=== PATIENT | female | born 1970 | race Caucasian/White ===

== ENCOUNTER 2018-10-23 14:49 | Inpatient (IN) | payer BC ==
[2018-10-23] MEDS ORDERED: SODIUM CHLORIDE 0.9% 1,000 ML IV ONE (15:06)
--- NOTE | 2018-10-23 15:14 | ED ---
Skin/Abscess/FB HPI - General Chief complaint: Skin/Abscess/Foreign Body Stated complaint: Facial swelling, tooth pulled Time Seen by Provider: 10/23/18 15:01 Source: patient, RN notes reviewed Mode of arrival: ambulatory Limitations: no limitations - History of Present Illness Initial comments: 48-year-old female presented emergency Department with chief complaint right- sided facial pain and swelling. Patient states she had a tooth extraction on Friday by [facility]. Patient states the pain is swelling has worsened last 24 hours. Patient states she is currently taking clindamycin. Patient states that she went to call her dentist but they are closed today. Patient states that she spiked a fever yesterday. Patient states is a Difficult to open close her mouth. - Related Data Allergies Allergy/AdvReac Type Severity Reaction Status Date / Time Penicillins Allergy Rash/Hives Verified 10/23/18 14:55 Review of Systems ROS Statement: Those systems with pertinent positive or pertinent negative responses have been documented in the HPI. ROS Other: All systems not noted in ROS Statement are negative. Past Medical History Past Medical History: No Reported History History of Any Multi-Drug Resistant Organisms: None Reported Past Surgical History: No Surgical Hx Reported Past Psychological History: No Psychological Hx Reported Smoking Status: Never smoker Past Alcohol Use History: Occasional Past Drug Use History: None Reported General Exam Limitations: no limitations General appearance: alert, in no apparent distress Head exam: Present: atraumatic, normocephalic, normal inspection Eye exam: Present: normal appearance, PERRL, EOMI. Absent: scleral icterus, conjunctival injection, periorbital swelling ENT exam: Present: mucous membranes moist, TM's normal bilaterally. Absent: nor mal exam, normal oropharynx (Moderate right-sided facial swelling, tenderness with palpation, mild erythema) Neck exam: Present: normal inspection, full ROM, lymphadenopathy. Absent: tenderness, meningismus Respiratory exam: Present: normal lung sounds bilaterally. Absent: respiratory distress, wheezes, rales, rhonchi, stridor Cardiovascular Exam: Present: normal rhythm, tachycardia, normal heart sounds. Absent: systolic murmur, diastolic murmur, rubs, gallop, clicks Course Vital Signs 10/23/18 14:53 Temperature 99.7 F H Pulse Rate 114 H Respiratory 20 Rate Blood Pressure 139/93 O2 Sat by Pulse 99 Oximetry Medical Decision Making - Medical Decision Making 48-year-old female presented for facial swelling. Patient's fell outpatient treatment of dental infection. No drainable abscess. Patient will be admitted for IV antibiotics, oral surgery consult. - Lab Data Result diagrams: 10/23/18 15:00 10/23/18 15:00 Lab Results 10/23/18 10/23/18 10/23/18 Range/Units 15:00 15:00 15:00 WBC 12.6 H (3.8-10.6) k/uL RBC 4.46 (3.80-5.40) m/uL Hgb 13.5 (11.4-16.0) gm/dL Hct 39.6 (34.0-46.0) % MCV 88.9 (80.0-100.0) fL MCH 30.3 (25.0-35.0) pg MCHC 34.1 (31.0-37.0) g/dL RDW 13.9 (11.5-15.5) % Plt Count 133 L (150-450) k/uL Sodium 140 (137-145) mmol/L Potassium 3.6 (3.5-5.1) mmol/L Chloride 103 (98-107) mmol/L Carbon Dioxide 24 (22-30) mmol/L Anion Gap 13 mmol/L BUN 9 (7-17) mg/dL Creatinine 0.59 (0.52-1.04) mg/dL Est GFR (CKD-EPI)AfAm >90 (>60 ml/min/1.73 sqM) Est GFR (CKD-EPI)NonAf >90 (>60 ml/min/1.73 sqM) Glucose 110 H (74-99) mg/dL Plasma Lactic Acid Deejay 1.3 (0.7-2.0) mmol/L Calcium 9.6 (8.4-10.2) mg/dL Disposition Clinical Impression: Dental infection, Failure of outpatient treatment Disposition: ADMITTED IP TO THIS HOSP Condition: Fair Referrals: Saeed Montesinos MD [Primary Care Provider] - 1-2 days
[2018-10-23 15:40] LABS: Basophils % (A) 0 %; Eosinophils # (A) 0.2 k/uL (0-0.7); Eosinophils % (A) 1 %; HCT 39.6 % (34.0-46.0); HGB 13.5 gm/dL (11.4-16.0); Lymphocytes # (A) 1.2 k/uL (1.0-4.8); Lymphocytes % (A) 10 %; MCH 30.3 pg (25.0-35.0); MCHC 34.1 g/dL (31.0-37.0); MCV 88.9 fL (80.0-100.0); Mean Platelet Volume 11.2; Monocytes # (A) 0.8 k/uL (0-1.0); Monocytes % (A) 6 %; Neutrophils # (A) 10.4 k/uL (1.3-7.7); Neutrophils % (A) 82 %; Platelet Count 133 k/uL (150-450); RBC 4.46 m/uL (3.80-5.40); RDW 13.9 % (11.5-15.5); WBC 12.6 k/uL (3.8-10.6)
[2018-10-23 15:41] LABS: Anion Gap 13 mmol/L; Blood Urea Nitrogen 9 mg/dL (7-17); Calcium 9.6 mg/dL (8.4-10.2); Carbon Dioxide 24 mmol/L (22-30); Chloride 103 mmol/L (98-107); Glucose 110 mg/dL (74-99); Potassium 3.6 mmol/L (3.5-5.1); Sodium 140 mmol/L (137-145)
--- NOTE | 2018-10-23 15:52 | CT ---
EXAMINATION TYPE: CT soft tissue neck w con DATE OF EXAM: 10/23/2018 COMPARISON: None HISTORY: [place] tooth removed 3 days ago. Right facial swelling and fever. CT DLP: 189.1 mGycm CONTRAST: Patient injected with 100 mL of Isovue 300. TECHNIQUE: Axial images at 3 mm thick sections. Reconstructed images in the coronal plane and sagitt al plane are reviewed. FINDINGS: Limited CT sections are obtained the lung apices. The lung apices appear clear. CT neck: The torus tubarius and fossa of Rosenmuller are normal. The lateral tailing hand muscle on the right appears swollen compared to the left. No underlying abscess is identified. There are inflammat ory changes in the subcutaneous and deeper tissues on the right. No focal circumscribed abscess is id entified. No hematoma is identified. Phlegmon should be considered. Follow-up is recommended. Paranas al sinuses and mastoid air cells are clear. Parotid glands appear normal and symmetrical. Submandibular glands, are normal. Multiple small lymph nodes are present adjacent to the submandibular gland on the right. Couple small lymph nodes are pre sent on the left. Parapharyngeal spaces are normal. No suspicious adenopathy is evident. The hypopharynx appears within normal limits. Vocal cord level appear symmetrical. Thyroid as visualized is normal. No tracking into the prevertebral space or superior mediastinum in the lower neck is evident. Osseous structures are normal. IMPRESSIONS: 1. Soft tissue swelling and muscular swelling on the right. No underlying abscess is identified. Ther e are multiple small lymph nodes present.
[2018-10-23] MEDS ORDERED: CLINDAMYCIN 600 MG in DEXTROSE 5% IN WATER 50 ML IVPB STA ×2 (16:39)
[2018-10-23] MEDS ORDERED: HYDROcodone/APAP 5-325MG 1 EACH TAB PO PRN (16:42)
[2018-10-23] MEDS ORDERED: NALOXONE 0.4 MG/ML 1 ML VIAL IV PRN (16:42)
[2018-10-23] MEDS ORDERED: IBUPROFEN 400 MG TAB PO PRN (16:42)
[2018-10-23] MEDS ORDERED: ONDANSETRON 4 MG/2 ML VIAL IVP PRN (16:42)
[2018-10-23] MEDS ORDERED: ACETAMINOPHEN TAB 325 MG TAB PO PRN (16:42)
[2018-10-23] MEDS ORDERED: MORPHINE SULFATE 4 MG/ML SYRINGE IV PRN (16:42)
[2018-10-23] MEDS ORDERED: DEXAMETHASONE SOD PHOSPHATE 10 MG/ML 1 ML VIAL IV STA (16:46)
[2018-10-23] MEDS: KETOROLAC 30 MG/ML 1 ML VIAL IVP PRN (17:12)
[2018-10-23 18:34] VITALS: BMI 22.5
--- NOTE | 2018-10-23 18:36 | P.GSCN ---
History of Present Illness Consult date: 10/23/18 Reason for Consult: Facial cellulitis right side Requesting physician: Burak Soto History of present illness: 48-year-old female sitting up in bed the at bedside. Patient's pleasant no apparent distress. Patient had a impacted third molar on the right side tooth #[address] [facility] on October 20. Patient woke up the next a significantly swollen with pain. Over the next few days swelling worse and fever and chills ensued. The patient had been placed on clindamycin postoperatively and continued to take it as directed. Review of Systems - Constitutional Reports as per HPI, Reports chills, Reports fever - EENT Ears, nose, mouth and throat: Reports dental pain, Reports mouth pain, Reports neck fullness/pressure, Reports neck lump, Reports odynophagia, Reports swelling in mouth - Psychiatric Reports as per HPI Past Medical History Past Medical History: No Reported History History of Any Multi-Drug Resistant Organisms: None Reported Past Surgical History: No Surgical Hx Reported Past Psychological History: No Psychological Hx Reported Smoking Status: Never smoker Past Alcohol Use History: Occasional Past Drug Use History: None Reported Medications and Allergies Home Medications Medication Instructions Recorded Confirmed Type Clindamycin HCl 300 mg PO Q8H 10/23/18 10/23/18 History HYDROcodone/APAP 5-325MG [[place] 1 tab PO Q6HR PRN 10/23/18 10/23/18 History 5-325] Multivitamins, Thera [Multivitamin 1 tab PO DAILY 10/23/18 10/23/18 History (formulary)] Allergies Allergy/AdvReac Type Severity Reaction Status Date / Time Penicillins Allergy Rash/Hives Verified 10/23/18 18:01 Surgical - Exam Vital Signs Temp Pulse Resp BP Pulse Ox 99.7 F H 114 H 20 139/93 99 10/23/18 14:53 10/23/18 14:53 10/23/18 14:53 10/23/18 14:53 10/23/18 14:53 - General well developed, well nourished, moderate distress - Eyes PERRL, normal ocular movement - ENT Patient has greater than 2 cm swelling associated with the lateral aspect of the right jaw appears to be originating over the extraction site of tooth #32. has limited mouth opening approximately 8-10 mm. A recent surgical incision is noted buccal to tooth #31 32. The angle of the mandible is palpable. Swelling appears to stop at the zygomatic arch. And forward to the commissure but not into the lips. Intraorally the tongue is not raised. There is no noted swelling of the soft palate. Unable to see the uvula DUE to limited opening. Swelling is firm and tender no fluctuance is noted. normal nares Results - Labs 10/23/18 15:00 10/23/18 15:00 Abnormal Lab Results - Last 24 Hours (Table) 10/23/18 10/23/18 Range/Units 15:00 15:00 WBC 12.6 H (3.8-10.6) k/uL Plt Count 133 L (150-450) k/uL Neutrophils # 10.4 H (1.3-7.7) k/uL Glucose 110 H (74-99) mg/dL Diabetes panel 10/23/18 Range/Units 15:00 Sodium 140 (137-145) mmol/L Potassium 3.6 (3.5-5.1) mmol/L Chloride 103 (98-107) mmol/L Carbon Dioxide 24 (22-30) mmol/L BUN 9 (7-17) mg/dL Creatinine 0.59 (0.52-1.04) mg/dL Glucose 110 H (74-99) mg/dL Calcium 9.6 (8.4-10.2) mg/dL Calcium panel 10/23/18 Range/Units 15:00 Calcium 9.6 (8.4-10.2) mg/dL Pituitary panel 10/23/18 Range/Units 15:00 Sodium 140 (137-145) mmol/L Potassium 3.6 (3.5-5.1) mmol/L Chloride 103 (98-107) mmol/L Carbon Dioxide 24 (22-30) mmol/L BUN 9 (7-17) mg/dL Creatinine 0.59 (0.52-1.04) mg/dL Glucose 110 H (74-99) mg/dL Calcium 9.6 (8.4-10.2) mg/dL Adrenal panel 10/23/18 Range/Units 15:00 Sodium 140 (137-145) mmol/L Potassium 3.6 (3.5-5.1) mmol/L Chloride 103 (98-107) mmol/L Carbon Dioxide 24 (22-30) mmol/L BUN 9 (7-17) mg/dL Creatinine 0.59 (0.52-1.04) mg/dL Glucose 110 H (74-99) mg/dL Calcium 9.6 (8.4-10.2) mg/dL - Imaging Additional studies: CT scan report reviewed no abscess or hematoma noted. Assessment and Plan Assessment: Postoperative surgical changes consistent with postoperative infection. No abscess or hematoma noted on the CAT scan. Plan: Due to the fact there is no abscess or hematoma to drain no surgical interve ntion at this time. Recommend IV antibiotic therapy. Clindamycin remains a good choice in the intravenous route provided clinical improvement is noted. Steroids were given in the emergency room and recommended tapering dose at this point. We'll continue to follow. Time with Patient: Less than 30
[2018-10-23] MEDS: CHLORHEXIDINE GLUCONATE 15 ML CUP MUCOUS MEM SCH (21:26)
[2018-10-24] MEDS ORDERED: DEXAMETHASONE SOD PHOSPHATE 10 MG/ML 1 ML VIAL IV ONE
[2018-10-24] MEDS: CLINDAMYCIN 600 MG in DEXTROSE 5% IN WATER 50 ML IVPB SCH ×8 (00:08→18:16)
[2018-10-24] MEDS: SODIUM CHLORIDE 0.9% 1,000 ML IV SCH ×2 (05:58→20:31)
[2018-10-24] MEDS: DEXAMETHASONE SOD PHOSPHATE 4 MG/ML 1 ML VIAL IV SCH ×3 (05:59→20:31)
[2018-10-24 08:56] VITALS: RESP 16
[2018-10-24] MEDS: CHLORHEXIDINE GLUCONATE 15 ML CUP MUCOUS MEM SCH ×2 (09:44→20:31)
[2018-10-24] MEDS: KETOROLAC 30 MG/ML 1 ML VIAL IVP PRN ×2 (09:47→20:40)
--- NOTE | 2018-10-24 15:36 | P.PN ---
Subjective Progress Note Date: 10/24/18 Principal diagnosis: Right sided facial cellulitis postop surgical extraction of impacted wisdom tooth day 4 Patient was admitted to the hospital yesterday after increased pain and swelling postop surgical extraction of impacted wisdom tooth. Patient was placed on clindamycin postoperatively and she reported compliance. She was having some difficulty eating due to her inability to open her mouth but she had no difficulty swallowing or airway compromise. She did report fever and chills at home and had a fever upon arrival to the floor but has had no fevers since her admission. Today she reports being able to eat full liquids able to get a spoon in her mouth. No difficulty swallowing and no difficulty drinking. Overall she feels much better today. Objective - Vital Signs Vital signs: Vital Signs Temp 97.6 F 10/24/18 11:42 Pulse 82 10/24/18 11:42 Resp 16 10/24/18 11:42 BP 109/70 10/24/18 11:42 Pulse Ox 95 10/24/18 11:42 Intake & Output 10/23/18 10/24/18 10/24/18 18:59 06:59 18:59 Intake Total 300 Balance 300 Weight 60.781 kg Intake: Oral 300 Other: Voiding Method Toilet # Voids 1 - EENT EENT Comment(s): Patient's able to open her mouth approximately 10-12 mm. She denies any numbness. She has no tongue elevation. Able to palpate the cheek bone angle of the mandible in the chin without difficulty. Over 2 cm of facial swelling still present in the lateral aspect of the mandible. Appears to be slightly improved since yesterday. Redness has changed to ecchymosis of yellow and green. Still quite tender to palpation no fluctuance noted - Labs CBC & Chem 7: 10/23/18 15:00 10/23/18 15:00 Labs: Abnormal Lab Results - Last 24 Hours (Table) 10/23/18 10/23/18 Range/Units 15:00 15:00 WBC 12.6 H (3.8-10.6) k/uL Plt Count 133 L (150-450) k/uL Neutrophils # 10.4 H (1.3-7.7) k/uL Glucose 110 H (74-99) mg/dL Assessment and Plan Assessment: Postoperative surgical changes consistent with postoperative infection. No abscess or hematoma noted on the CAT scan. Overall patient feels better today and swelling appears slightly improved. Plan: Due to the patient improving clinically recommend continue current antibiotic therapy and no surgical intervention at this time. The patient reporting no diarrhea but lactobacillus may be added to her diet and an effort to maintain gut integrity. Also recommend continuing tapered Decadron dosing changing to every 8 hours with the next dose to be and 8 PM. Continue to push orals and motivated patient to ambulate. Okay to shower. Time with Patient: Less than 30
[2018-10-24] MEDS: LACTOBACILLUS ACIDOPH & BULGAR 1 EACH PACKET PO SCH (20:31)
--- NOTE | 2018-10-25 00:03 | P.HPIM ---
History of Present Illness H&P Date: 10/24/18 Chief Complaint: Right-sided facial swelling Patient is a 48-year-old female without significant past medical history came to ER with complaints of right-sided facial swelling and increased tooth pain and fever worsening for the past 24 hours prior to admission. Patient did have tooth extraction due to impacted lower wisdom tooth about 5 days ago. Patient has been having swelling of the face and pain since then without improvement with Motrin at home. Patient became febrile and came to ER for evaluation. Patient unable to open her mouth and difficulty in speech as well. No complaints of chest pain or shortness of breath. Patient does have fever and chills on admission.\ No nausea vomiting or diarrhea. No dysuria or hematuria. CT soft tissue neck showed soft tissue swelling and muscular swelling on the right. No underlying abscess is identified. There are multiple small lymph nodes present. Review of Systems Constitutional: Patient does have fever and chills. . No generalized weakness or weight loss. Abdomen: Patient denied nausea vomiting and diarrhea and abdominal pain. Cardiovascular: Patient denies any chest pain or short of breath no palpitations. Respiratory: patient denied any cough is from production. No shortness of breath Neurologic: Patient denied any numbness or tingling headache. Musculoskeletal: Patient denies any complaints of joint swelling or deformity. Right-sided facial swelling and pain Skin: Negative Psychiatric: Negative Endocrine: No heat or cold intolerance. No recent weight gain. Genitourinary: No dysuria or hematuria. All other 14 point ROS negative except the above Past Medical History Past Medical History: No Reported History History of Any Multi-Drug Resistant Organisms: None Reported Past Surgical History: No Surgical Hx Reported Past Psychological History: No Psychological Hx Reported Smoking Status: Never smoker Past Alcohol Use History: Occasional Past Drug Use History: None Reported - Past Family History Mother Family Medical History: No Reported History Father Family Medical History: No Reported History Medications and Allergies Home Medications Medication Instructions Recorded Confirmed Type Clindamycin HCl 300 mg PO Q8H 10/23/18 10/23/18 History HYDROcodone/APAP 5-325MG [[place] 1 tab PO Q6HR PRN 10/23/18 10/23/18 History 5-325] Multivitamins, Thera [Multivitamin 1 tab PO DAILY 10/23/18 10/23/18 History (formulary)] Allergies Allergy/AdvReac Type Severity Reaction Status Date / Time Penicillins Allergy Rash/Hives Verified 10/23/18 18:01 Physical Exam Vitals: Vital Signs Temp Pulse Pulse Resp BP BP Pulse Ox 10/24/18 11:42 97.6 F 82 16 109/70 95 10/24/18 08:33 98.1 F 73 16 105/67 98 10/24/18 00:07 97.6 F 69 14 100/71 97 10/24/18 00:00 69 14 10/23/18 20:08 85 16 10/23/18 19:58 98.6 F 85 16 100/70 97 10/23/18 18:40 100.6 F H 108 H 18 111/72 95 10/23/18 17:30 102.6 F H 110 H 16 110/74 99 Intake and Output 10/24/18 10/24/18 10/24/18 06:59 14:59 22:59 Intake Total 300 Balance 300 Intake: Oral 300 Other: Voiding Method Toilet # Voids 1 PHYSICAL EXAMINATION: Patient is lying in the bed comfortably, no acute distress, awake alert and oriented.. HEENT: Right facial swelling and redness and unable to open her mouth Normocephalic. Neck is supple. Pupils reactive. Nostrils clear. Oral cavity is moist. Ears reveal no drainage. Neck reveals no JVD, carotid bruits, or thyromegaly. CHEST EXAMINATION: Trachea is central. Symmetrical expansion. Lung lui clear to auscultation and percussion. CARDIAC: Normal S1, S2 with no gallops. No murmurs ABDOMEN: Soft. Bowel sounds normal. No organomegaly. No abdominal bruits. Extremities: reveal no edema. No clubbing or cyanosis Neurologically awake, alert, oriented x3 with well-coordinated movements. No focal deficits noted Skin: No rash or skin lesions. Psychiatric: Coperative. Nonsuicidal Musculoskeletal: No joint swelling or deformity. Normal range of motion. Results CBC & Chem 7: 10/23/18 15:00 10/23/18 15:00 Labs: Abnormal Lab Results - Last 24 Hours (Table) 10/23/18 Range/Units 15:00 WBC 12.6 H (3.8-10.6) k/uL Plt Count 133 L (150-450) k/uL Neutrophils # 10.4 H (1.3-7.7) k/uL Thrombosis Risk Factor Assmnt - DVT/VTE Prophylaxis DVT/VTE Prophylaxis: Pharmacologic Prophylaxis ordered - Choose All That Apply Any of the Below Risk Factors Present?: No Other Risk Factors: No Other congenital or acquired thrombophilia - If yes, enter type in comment: No Thrombosis Risk Factor Assessment Level: Very Low Risk Assessment and Plan Assessment: right facial swelling and pain with opening of mouth due to recent tooth extraction. No abscess noted in the CT Fever on admission. Currently resolved. Plan: Patient will be continued on antibiotics of clindamycin. Follow blood cultures. Patient was given Decadron which is being tapered down. Continue with Peridex oral. Gen. surgery is following. Follow-up closely. Further conditions based on the clinical course. Time with Patient: Greater than 30
[2018-10-25] MEDS: CLINDAMYCIN 600 MG in DEXTROSE 5% IN WATER 50 ML IVPB SCH ×6 (00:07→11:47)
[2018-10-25] MEDS: DEXAMETHASONE SOD PHOSPHATE 4 MG/ML 1 ML VIAL IV SCH ×2 (04:06→12:27)
[2018-10-25] MEDS: KETOROLAC 30 MG/ML 1 ML VIAL IVP PRN (07:23)
[2018-10-25] MEDS: CHLORHEXIDINE GLUCONATE 15 ML CUP MUCOUS MEM SCH (07:29)
[2018-10-25] MEDS: LACTOBACILLUS ACIDOPH & BULGAR 1 EACH PACKET PO SCH (10:09)
[2018-10-25] MEDS: SODIUM CHLORIDE 0.9% 1,000 ML IV SCH (10:12)
[2018-10-25 16:46] VITALS: BP 115/75; PULSE 68; TEMP 97.9
== END 2018-10-25 16:33 | disposition home or self-care (01) | DRG 863 ==
LOC: EC 14:49 → 6PED 16:36
PROVIDERS: ADMIT Internal Medicine; ATTEND Internal Medicine
DX: T81.40XA Infection following a procedure, unspecified, initial encounter (principal); L03.211 Cellulitis of face; K08.409 Partial loss of teeth, unspecified cause, unspecified class; Z88.0 Allergy status to penicillin
CPT/HCPCS: 36415; 70491; 80048; 83605; 85025; 87040; 96361; 96365; 96375; 99284

== ENCOUNTER → 2020-06-07 | Outpatient (CLI) | payer OTHER ==
--- NOTE | 2020-06-07 07:32 | US ---
EXAMINATION TYPE: US abdomen complete DATE OF EXAM: 06/07/2020 COMPARISON: NONE CLINICAL HISTORY: R16.1 Spleeomagly. Pt states low platelets EXAM MEASUREMENTS: Liver Length: 16.0 cm Gallbladder Wall: 0.1 cm CBD: 0.4 cm Spleen: 8.5 cm Right Kidney: 10.3 x 4.4 x 4.6 cm Left Kidney: 10.4 x 5.3 x 5.3 cm Pancreas: wnl Liver: wnl Gallbladder: wnl Evidence for sonographic Wilson's sign: No CBD: wnl Spleen: wnl, specular reflections scattered throughout Right Kidney: wnl Left Kidney: wnl, lower pole gassed out Upper IVC: wnl Abd Aorta: wnl The liver is homogenous. The intrahepatic portion of the IVC and proximal abdominal aorta are within normal limits. There is no evidence of cholelithiasis. Common bile duct is unremarkable. The visu alized portions of the pancreas are homogenous. The spleen is unremarkable. Kidneys are symmetric a nd free of hydronephrosis. No renal lesions are seen. IMPRESSION: No distinct abnormality appreciated.
== END | disposition home or self-care (01) ==
LOC: RADUSWWP 06:58
PROVIDERS: ATTEND Internal Medicine Hematology & Oncology
DX: R16.1 Splenomegaly, not elsewhere classified (principal); Z88.0 Allergy status to penicillin
CPT/HCPCS: 76700

== ENCOUNTER → 2021-04-11 | Outpatient (CLI) | payer OTHER ==
--- NOTE | 2021-04-12 13:41 | MM ---
Reason for exam: screening (asymptomatic). Last mammogram was performed 3 years and 2 months ago. History: Patient is postmenopausal. Retro-pectoral saline implants in both breasts, 2006. Physical Findings: A clinical breast exam by your physician is recommended on an annual basis and results should be correlated with mammographic findings. MG 3D Screen Mammo Imp/Cad Bilateral CC, MLO, and ID view(s) were taken. Prior study comparison: February 03, 2018, mammogram, performed at [facility]. August 25, 2015, mammogram, performed at [facility]. August 22, 2015, mammogram, performed at [facility]. The breast tissue is heterogeneously dense. This may lower the sensitivity of mammography. Bilateral implants are intact. ASSESSMENT: Benign, BI-RAD 2 RECOMMENDATION: Routine screening mammogram of both breasts in 1 year.
== END | disposition home or self-care (01) ==
LOC: RADMAMWWP 12-05 07:04
PROVIDERS: ATTEND Obstetrics & Gynecology Obstetrics
DX: Z12.31 Encounter for screening mammogram for malignant neoplasm of breast (principal); Z78.0 Asymptomatic menopausal state; Z98.82 Breast implant status
CPT/HCPCS: 77063; 77067

== ENCOUNTER → 2023-06-17 | Outpatient (CLI) | payer OTHER ==
--- NOTE | 2023-06-18 09:22 | MM ---
Reason for Exam: Hx of breast augmentation, asymptomatic. Last mammogram was performed 2 year(s) and 2 month(s) ago. Patient History: Menarche at age 14. First Full-Term at age 19. Postmenopausal. 2005, Bilateral Implants. Risk Values: Sridevi 5 year model risk: 0.8%. NCI Lifetime model risk: 6.3%. Prior Study Comparison: 08/25/2015 Screening Mammogram, [facility] [place] . 02/03/2018 Screening Mammogram, [facility] [place] . 04/11/2021 Bilateral Screening Mammogram, [facility]. Tissue Density: There are scattered fibroglandular densities. Findings: Analyzed By CAD. Bilateral breast implants appear intact. There is no suspicious group of microcalcifications or new suspicious mass. Overall Assessment: Negative, BI-RAD 1 Management: Screening Mammogram of both breasts in [address] [facility] will attempt to contact patient to return for supplemental views and ultrasound if indicated. Patient should continue monthly self-breast exams. A clinical breast exam by your physician is recommended on an annual basis. This exam should not preclude additional follow-up of suspicious palpable abnormalities. Note on Sridevi scores and lifetime risk: 1. A Sridevi score greater than 3% is considered moderate risk. If this is the case, consider specialist referral to assess eligibility for a risk reducing agent. 2. If overall lifetime risk for the development of breast cancer is 20% or higher, the patient may qualify for future screening with alternating mammogram and breast MRI. Electronically signed and approved by: Glen Robbins DO
== END | disposition home or self-care (01) ==
LOC: RADMAMWWP 10:34
PROVIDERS: ATTEND Obstetrics & Gynecology Obstetrics
DX: Z12.31 Encounter for screening mammogram for malignant neoplasm of breast (principal); Z78.0 Asymptomatic menopausal state; Z98.82 Breast implant status
CPT/HCPCS: 77063; 77067

== ENCOUNTER → 2024-11-02 | Outpatient (CLI) | payer OTHER ==
--- NOTE | 2024-11-02 14:44 | MM ---
Reason for Exam: Screening (asymptomatic). Last mammogram was performed 1 year(s) and 5 month(s) ago. Patient History: Menarche at age 14. First Full-Term at age 19. Postmenopausal. 2006, Bilateral Implants. Risk Values: Sridevi 5 year model risk: 0.8%. NCI Lifetime model risk: 6.2%. Prior Study Comparison: 02/03/2018 Screening Mammogram, [facility] [place] . 04/11/2021 Bilateral Screening Mammogram, [facility]. 06/17/2023 Bilateral MG 3D screen mammo imp/cad., [facility]. Tissue Density: The breasts are heterogeneously dense, which may obscure small masses. Findings: Analyzed By CAD. Bilateral breast implants are redemonstrated. There is no suspicious group of microcalcifications or new suspicious mass in either breast. Overall Assessment: Benign, BI-RAD 2 Management: Screening Mammogram of both breasts in 1 year. . Patient should continue monthly self-breast exams. A clinical breast exam by your physician is recommended on an annual basis. This exam should not preclude additional follow-up of suspicious palpable abnormalities. Note on Sridevi scores and lifetime risk: 1. A Sridevi score greater than 3% is considered moderate risk. If this is the case, consider specialist referral to assess eligibility for a risk reducing agent. 2. If overall lifetime risk for the development of breast cancer is 20% or higher, the patient may qualify for future screening with alternating mammogram and breast MRI. [facility], , 11/02/2024 2:41 PM. Electronically signed and approved by: Aron Rubio M.D.
== END | disposition home or self-care (01) ==
LOC: RADMAMWWP 13:26
PROVIDERS: ATTEND Obstetrics & Gynecology Obstetrics
DX: Z12.31 Encounter for screening mammogram for malignant neoplasm of breast (principal); R92.333 Mammographic heterogeneous density, bilateral breasts; Z78.0 Asymptomatic menopausal state; Z98.82 Breast implant status
CPT/HCPCS: 77063; 77067